=== PATIENT | female | born 1970 | race Caucasian/White ===

== ENCOUNTER 2016-11-13 07:15 | Outpatient (CLI) | payer OTHER | END 2016-11-13 07:16 | DX: R19.7 Diarrhea, unspecified (principal) ==

== ENCOUNTER 2020-10-17 12:26 | Outpatient (CLI) | payer OTHER | END 2020-10-17 12:27 | disposition home or self-care (01) | LOC: COV 12:26 | PROVIDERS: ATTEND Family Medicine | DX: R11.2 Nausea with vomiting, unspecified (principal); M79.10 Myalgia, unspecified site; Z20.822 Contact with and (suspected) exposure to COVID-19 ==

== ENCOUNTER 2021-01-14 20:32 | Outpatient (CLI) | payer OTHER | END 2021-01-14 20:33 | disposition critical access hospital (66) | LOC: EMS 20:32 | DX: T42.4X1A Poisoning by benzodiazepines, accidental (unintentional), initial encounter (principal) | CPT/HCPCS: A0425; A0429 ==

== ENCOUNTER 2021-01-14 20:47 | Emergency (ER) | payer OTHER ==
--- NOTE | 2021-01-14 21:05 | ED Physician Documentation ---
PD HPI OVERDOSE - Stated complaint Stated Complaint: ETOH,OD,SI - Chief complaint Chief Complaint: MHE - History obtained from History obtained from: Patient, Friend, EMS - History of Present Illness Timing - onset: How many hours ago (3-4), Today Subtance(s) ingested: Multiple (Flexeril and then Xanax.), EtOH Associated symptoms: Other (somnolent) Contributing factors: Other (The patient states that she had been feeling somewhat depressed and took the medication in order to sleep "for a while" and escape. She denies any suicidal intent. She was texting with a friend, messages read that she was taking an excess of meds to sleep, but "do not care" of consequence.). No: Suicidal Similar symptoms before: Diagnosis (she states she had overdose about 10 years ago. No recent problems with it. Has depression and bipolar and has regular counselor. States takes her meds regularly.) Recently seen: Not recently seen Review of Systems Constitutional: denies: Fever, Chills Nose: denies: Rhinorrhea / runny nose, Congestion Throat: denies: Sore throat Cardiac: denies: Chest pain / pressure Respiratory: denies: Cough GI: denies: Abdominal Pain, Vomiting, Diarrhea Skin: denies: Abrasion (s), Laceration (s) Neurologic: denies: Syncope, Headache, Head injury Psychiatric: reports: Depressed, Anxiety. 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 - Present Medications Home Medications: Ambulatory Orders Medication Instructions Recorded Confirmed Aspirin [Aspir 81] 81 mg PO DAILY 08/20/15 01/14/21 Dextroamphetamine/Amphetamine 30 mg PO BID 08/20/15 01/14/21 [Adderall 30 mg Tablet] Lurasidone HCl [Latuda] 60 mg PO DAILY 08/20/15 01/14/21 Metoprolol Tartrate 25 mg PO DAILY 08/20/15 01/14/21 Zolpidem [Ambien] 10 mg PO HS PRN 08/20/15 01/14/21 lamoTRIgine [Lamictal] 200 mg PO DAILY 08/20/15 01/14/21 - Allergies Allergies/Adverse Reactions: Allergies Allergy/AdvReac Type Severity Reaction Status Date / Time bupropion HCl * AdvReac Unknown Verified 01/14/21 21:09 [From Wellbutrin] - Social History Does the pt smoke?: No Smoking Status: Former smoker Does the pt drink ETOH?: No Does the pt have substance abuse?: No - Immunizations Immunizations are current?: Yes PD ED PE NORMAL - Vitals Vital signs reviewed: Yes - General General: Alert and oriented X 3, Well developed/nourished, Other (somnolent but able to carry conversation. Expressive of emotion, with yelling answers at times. ) - HEENT HEENT: Atraumatic, Pharynx benign - Neck Neck: Supple, no meningeal sign, No adenopathy - Cardiac Cardiac: No: RRR (mild tachycardia) - Respiratory Respiratory: No respiratory distress, Clear bilaterally - Abdomen Abdomen: Soft, Non tender, Non distended - Derm Derm: Normal color, Warm and dry - Extremities Extremities: No tenderness to palpate, Normal ROM s pain - Neuro Neuro: Alert and oriented X 3, No motor deficit, Normal speech Eye Opening: Spontaneous Motor: Obeys Commands Verbal: Oriented GCS Score: 15 Results - Vitals Vitals: Vital Signs - 24 hr 01/14/21 01/14/21 01/14/21 20:50 21:04 22:24 Temperature 36.7 C Heart Rate 101 H 105 H 100 Respiratory 16 21 21 Rate Blood Pressure 127/90 H 121/92 H 103/70 O2 Saturation 96 94 99 01/14/21 01/14/21 01/15/21 23:26 23:59 00:11 Temperature 36.5 C 36.8 C Heart Rate 90 100 90 Respiratory 16 18 16 Rate Blood Pressure 97/63 114/85 H 116/75 O2 Saturation 98 95 100 01/15/21 01/15/21 01/15/21 01:11 03:00 05:00 Temperature 36.3 C L Heart Rate 99 90 91 Respiratory 16 16 16 Rate Blood Pressure 118/68 118/65 115/85 H O2 Saturation 99 99 100 Oxygen O2 Source Room air - Labs Labs: Laboratory Tests 01/14/21 01/14/21 01/14/21 21:15 21:20 21:20 WBC 7.4 RBC 4.20 Hgb 13.8 Hct 40.6 MCV 96.7 MCH 32.9 H MCHC 34.0 RDW 12.9 Plt Count 298 MPV 10.1 Neut # (Auto) 3.8 Lymph # (Auto) 2.9 Rhea # (Auto) 0.5 Eos # (Auto) 0.1 Baso # (Auto) 0.0 Absolute Nucleated RBC 0.00 Nucleated RBC % 0.0 Sodium 141 Potassium 4.4 Chloride 106 Carbon Dioxide 23 Anion Gap 12.0 BUN 8 Creatinine 0.8 Estimated GFR (MDRD) 77 L Glucose 100 Calcium 9.2 Magnesium Total Bilirubin 0.6 AST 32 ALT 40 Alkaline Phosphatase 59 Total Protein 7.0 Albumin 4.0 Globulin 3.0 Albumin/Globulin Ratio 1.3 Lipase 40 Urine Color YELLOW Urine Clarity SL. CLOUDY Urine pH 6.0 Ur Specific [place] <=1.005 Urine Protein NEGATIVE Urine Glucose (UA) NEGATIVE Urine Ketones NEGATIVE Urine Occult Blood TRACE-INTA Urine Nitrite POSITIVE H Urine Bilirubin NEGATIVE Urine Urobilinogen 0.2 (NORMAL) Ur Leukocyte Esterase TRACE H Urine RBC 0-5 Urine WBC 0-3 Ur Squamous Epith Cells FEW Squamous Urine Bacteria Many H Ur Microscopic Review INDICATED Urine Culture Comments INDICATED Urine HCG, Qual NEGATIVE Salicylates < 6.0 Urine Opiates Screen NEGATIVE Ur Oxycodone Screen NEGATIVE Urine Methadone Screen NEGATIVE Ur Propoxyphene Screen NEGATIVE Acetaminophen < 10 L Ur Barbiturates Screen NEGATIVE Ur Tricyclics Screen NEGATIVE Ur Phencyclidine Scrn NEGATIVE Ur Amphetamine Screen POSITIVE H U Methamphetamines Scrn NEGATIVE U Benzodiazepines Scrn POSITIVE H Urine Cocaine Screen NEGATIVE U Cannabinoids Screen NEGATIVE Ethyl Alcohol 60.1 01/14/21 21:20 WBC RBC Hgb Hct MCV MCH MCHC RDW Plt Count MPV Neut # (Auto) Lymph # (Auto) Rhea # (Auto) Eos # (Auto) Baso # (Auto) Absolute Nucleated RBC Nucleated RBC % Sodium Potassium Chloride Carbon Dioxide Anion Gap BUN Creatinine Estimated GFR (MDRD) Glucose Calcium Magnesium 1.9 Total Bilirubin AST ALT Alkaline Phosphatase Total Protein Albumin Globulin Albumin/Globulin Ratio Lipase Urine Color Urine Clarity Urine pH Ur Specific [place] Urine Protein Urine Glucose (UA) Urine Ketones Urine Occult Blood Urine Nitrite Urine Bilirubin Urine Urobilinogen Ur Leukocyte Esterase Urine RBC Urine WBC Ur Squamous Epith Cells Urine Bacteria Ur Microscopic Review Urine Culture Comments Urine HCG, Qual Salicylates Urine Opiates Screen Ur Oxycodone Screen Urine Methadone Screen Ur Propoxyphene Screen Acetaminophen Ur Barbiturates Screen Ur Tricyclics Screen Ur Phencyclidine Scrn Ur Amphetamine Screen U Methamphetamines Scrn U Benzodiazepines Scrn Urine Cocaine Screen U Cannabinoids Screen Ethyl Alcohol PD MEDICAL DECISION MAKING - ED course Complexity details: reviewed results, re-evaluated patient (The patient did well with normal vitals and no conduction abnormalities on monitor. No altered mentation apparent. She did sleep good portion of the time. At this point we w ill wait for her to wake it more fully and reassess her mood and ability to contract for safety.), considered differential (Somnolent but still able to have conversation. She denies suicidal intent. However she does not state the reason for taking so many excess medicines. She does seem intoxicated at this point with certainly the Flexeril and benzodiazepines if not alcohol as well.), d/w patient, d/w health and wellness sales consultant (Poison control suggests a 6 to 8-hour period of observation due to the potential of TCA like side effects and anticholinergic effects of the Flexeril as well as the sedative effects of the Xanax and alcohol.) ED course: Patient initially was expressing desire to leave and be discharged. However I do not feel that is appropriate given some disinhibited nests with the emotion and the current intoxication (including medications as well as alcohol). I feel she needs the appropriate period of observation as suggested by poison control to ensure no significant side effects to the overdose. She will need reassessing at that point. It could also be good to have her to stay till the morning and talk with social work as well for second opinion. Point there was no indication for suicidality He has been in the department over 8 hours so is cleared medically without any obvious significant processes from the overdose other than sedation. Ideally would be nice to have social work talk with her regarding [place]ne for safety. There had not been a clear suicidality to it but it certain disregard for her own safety with the degree number of medications taken. Departure - Departure Clinical Impression: Mood disorder Intentional drug overdose Qualifiers: Encounter type: initial encounter Qualified Code(s): T50.902A - Poisoning by unspecified drugs, medicaments and biological substances, intentional self-harm, initial encounter Depression Qualifiers: Depression Type: unspecified Qualified Code(s): F32.9 - Major depressive disorder, single episode, unspecified Clinical Impression: (Ruled Out): Attempted suicide Condition: Stable Record reviewed to determine appropriate education?: Yes Instructions: ED Overdose Intentional, ED Depression
[2021-01-14] MEDS ORDERED: SODIUM CHLORIDE 0.9% 1,000 ML IV STA (21:25)
[2021-01-14 21:40] LABS: BILIRUBIN,URINE NEGATIVE (NEGATIVE); GLUCOSE, URINE (UA) NEGATIVE (NEGATIVE); KETONES,URINE (UA) NEGATIVE (NEGATIVE); LEUKOCYTE ESTERASE, URINE TRACE (NEGATIVE); NITRITE,URINE POSITIVE (NEGATIVE); OCCULT BLOOD,URINE TRACE-INTA (NEGATIVE); PROTEIN,URINE NEGATIVE (NEGATIVE); UROBILINOGEN,URINE 0.2 (NORMAL) E.U./dL (NORMAL)
[2021-01-14 21:41] LABS: CLARITY,URINE SL. CLOUDY (CLEAR); HCG UR QUAL NEGATIVE
[2021-01-14 21:42] LABS: BASOPHILS % (AUTO) 0.5 %; EOSINOPHILS # (AUTO) 0.1 10^3/uL (0.0-0.7); EOSINOPHILS % (AUTO) 1.4 %; HCT - HEMATOCRIT 40.6 % (37.0-47.0); HGB - HEMOGLOBIN 13.8 g/dL (12.0-16.0); LYMPHOCYTES # (AUTO) 2.9 10^3/uL (1.5-3.5); LYMPHOCYTES % (AUTO) 39.2 %; MEAN CORPUSCULAR HEMOGLOBIN 32.9 pg (27.0-31.0); MEAN CORPUSCULAR VOLUME 96.7 fL (81.0-99.0); MEAN PLATELET VOLUME 10.1 fL (7.9-10.8); MONOCYTES # (AUTO) 0.5 10^3/uL (0.0-1.0); MONOCYTES % (AUTO) 6.4 %; NEUTROPHILS # (AUTO) 3.8 10^3/uL (1.5-6.6); PLT - PLATELET COUNT 298 10^3/uL (130-450); RED CELL DISTRIBUTION WIDTH 12.9 % (12.0-15.0); WHITE BLOOD COUNT 7.4 x10^3/uL (4.8-10.8)
[2021-01-14 21:47] LABS: BACTERIA,URINE Many /HPF (None Seen); RBC,URINE 0-5 /HPF (0-5); SQUAMOUS EPITHELIAL CELL,UR FEW Squamous (<= Few); WBC,URINE 0-3 /HPF (0-5)
[2021-01-14 21:48] LABS: AMPHETAMINE SCREEN,URINE POSITIVE (NEGATIVE); BARBITURATE SCREEN,UR NEGATIVE (NEGATIVE); BENZODIAZEPINES SCREEN, URINE POSITIVE (NEGATIVE); COCAINE SCREEN URINE NEGATIVE (NEGATIVE); METHADONE SCREEN, URINE NEGATIVE (NEGATIVE); METHAMPHETAMINES SCREEN, URINE NEGATIVE (NEGATIVE); OPIATE SCREEN, URINE NEGATIVE (NEGATIVE); OXYCODONE SCREEN, URINE NEGATIVE (NEGATIVE); PROPOXYPHENE SCREEN, URINE NEGATIVE (NEGATIVE); THC CANNABINOID SCREEN, URINE NEGATIVE (NEGATIVE); TRICYCLIC ANTIDEPRESSANT,URINE NEGATIVE (NEGATIVE)
[2021-01-14 21:58] LABS: ACETAMINOPHEN < 10 ug/mL (10-30); ALBUMIN/GLOBULIN RATIO 1.3 (1.0-2.2); ALKALINE PHOSPHATASE 59 IU/L (42-121); ALT ALANINE AMINOTRANSFERASE 40 IU/L (10-60); AST ASPARTATE AMINOTRANSFERASE 32 IU/L (10-42); BILIRUBIN,TOTAL 0.6 mg/dL (0.2-1.0); BUN - BLOOD UREA NITROGEN 8 mg/dL (6-20); CALCIUM 9.2 mg/dL (8.5-10.3); CARBON DIOXIDE - CO2 23 mmol/L (21-32); CHLORIDE 106 mmol/L (101-111); CREATININE 0.8 mg/dL (0.4-1.0); ETOH - ETHANOL 60.1 mg/dL; GFR - MDRD 77 (>89); GLUCOSE 100 mg/dL (70-100); LIPASE 40 U/L (22-51); POTASSIUM 4.4 mmol/L (3.5-5.0); SALICYLATE < 6.0 mg/dL; SODIUM 141 mmol/L (135-145)
[2021-01-15] MEDS ORDERED: cefTRIAXone 1 GM VIAL IVP STA (01:09)
[2021-01-15] MEDS ORDERED: cephALEXin 250 MG CAPSULE PO STA (01:18)
[2021-01-15 09:31] VITALS: BP 115/72
== END 2021-01-15 09:30 | disposition home or self-care (01) ==
LOC: EDUNIT# → ED 20:47
DX: T42.4X2A Poisoning by benzodiazepines, intentional self-harm, initial encounter (principal); T48.1X2A Poisoning by skeletal muscle relaxants [neuromuscular blocking agents], intentional self-harm, initial encounter; F10.929 Alcohol use, unspecified with intoxication, unspecified; R40.0 Somnolence; F32.9 Major depressive disorder, single episode, unspecified; F39 Unspecified mood [affective] disorder; R00.0 Tachycardia, unspecified; Z87.891 Personal history of nicotine dependence; Z79.82 Long term (current) use of aspirin
CPT/HCPCS: 36415; 80053; 80306; 80307; 80320; 80329; 81001; 81025; 83690; 83735; 85025; 87077; 87086; 87181; 93005; 96360; 99283; 99284; A9270; 81003

== ENCOUNTER 2021-05-09 16:06 | Emergency (ER) | payer OTHER ==
[2021-05-09 16:19] VITALS: BP 126/75
== END 2021-05-09 16:49 | disposition left against medical advice (07) ==
LOC: ED 16:06
DX: Z53.21 Procedure and treatment not carried out due to patient leaving prior to being seen by health care provider (principal); I25.2 Old myocardial infarction
CPT/HCPCS: 93005

== ENCOUNTER 2023-03-03 18:59 | Outpatient (CLI) | payer OTHER | END 2023-03-03 19:00 | disposition critical access hospital (66) | LOC: EMS 18:59 | DX: R56.9 Unspecified convulsions (principal) | CPT/HCPCS: A0425; A0429 ==

== ENCOUNTER 2023-03-03 19:16 | Emergency (ER) | payer OTHER ==
--- NOTE | 2023-03-03 19:26 | ED Physician Documentation ---
PD HPI SEIZURE - Stated complaint Stated Complaint: SZ - Chief complaint Chief Complaint: Neuro - History obtained from History obtained from: Patient, EMS - History of Present Illness Timing - onset: Today Witnessed: Witnessed Number of seizures: Single Pain level max: 4 Pain level now: 0 History of seizures: Known seizure disorder Recently seen: Not recently seen - Additional information Additional information: Patient is a 52-year-old female with a known seizure disorder. She was at home today when she had a 1 minute generalized tonic-clonic seizure. Last seizure was August 2022. She has been trying to taper off her Lamictal recently as she has been having "memory issues". She complains of a generalized headache, there is an abrasion on the right forehead. Her daughter moved her from the bed down onto the floor. A towel was wrapped around her neck by EMS as a cervical collar. Patient complains of a mild headache. Review of Systems Constitutional: denies: Fever, Chills GI: denies: Vomiting, Diarrhea Skin: denies: Rash Musculoskeletal: denies: Back pain Neurologic: reports: Seizure. 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 - Present Medications Home Medications: Ambulatory Orders Medication Instructions Recorded Confirmed Dextroamphetamine/Amphetamine 60 mg PO DAILY 08/20/15 03/03/23 [Adderall 30 mg Tablet] Lurasidone HCl [Latuda] 60 mg PO DAILY 08/20/15 03/03/23 lamoTRIgine [Lamictal] 150 mg PO DAILY 08/20/15 03/03/23 Eszopiclone [Lunesta] 2 mg PO HS 03/03/23 03/03/23 OLANZapine ODT [Zyprexa Odt] 5 mg TL BID PRN 03/03/23 03/03/23 - Allergies Allergies/Adverse Reactions: Allergies Allergy/AdvReac Type Severity Reaction Status Date / Time bupropion HCl * AdvReac Unknown Verified 03/03/23 19:25 [From Wellbutrin] - Social History Does the pt smoke?: No Smoking Status: Former smoker Does the pt drink ETOH?: No Does the pt have substance abuse?: No - Immunizations Immunizations are current?: Yes - POLST Patient has POLST: No PD ED PE NORMAL - Vitals Vital signs reviewed: Yes - General General: Alert and oriented X 3, No acute distress, Well developed/nourished - HEENT HEENT: PERRL, Moist mucous membranes, Pharynx benign, Other (Abrasion to the right forehead) - Neck Neck: Supple, no meningeal sign, Other (Mild upper C-spine tenderness to palpation. No step-off or deformity) - Cardiac Cardiac: RRR, Strong equal pulses - Respiratory Respiratory: No respiratory distress, Clear bilaterally - Abdomen Abdomen: Soft, Non tender, Non distended - Derm Derm: Warm and dry - Extremities Extremities: No edema, No calf tenderness / cord - Neuro Neuro: Alert and oriented X 3, school counsellor 2-12 intact, No motor deficit, No sensory deficit, Normal speech - Psych Psych: Normal mood, Normal affect Results - Vitals Vitals: Vital Signs - 24 hr 03/03/23 03/03/23 03/03/23 19:25 19:36 20:14 Temperature 36.6 C Heart Rate 111 H 103 H 97 Respiratory 18 16 16 Rate Blood Pressure 138/98 H 143/94 H 128/86 H O2 Saturation 97 95 94 03/03/23 21:10 Temperature Heart Rate 113 H Respiratory 22 Rate Blood Pressure 141/97 H O2 Saturation 99 Oxygen O2 Source Room air - Labs Labs: Laboratory Tests 03/03/23 03/03/23 19:42 19:42 WBC 7.7 RBC 4.98 Hgb 14.7 Hct 48.5 H MCV 97.4 MCH 29.5 MCHC 30.3 L RDW 13.5 Plt Count TNP MPV 11.1 H Neut # (Auto) 4.9 Lymph # (Auto) 2.2 [place] # (Auto) 0.6 Eos # (Auto) 0.0 Baso # (Auto) 0.0 Absolute Nucleated RBC 0.00 Nucleated RBC % 0.0 Manual Slide Review Indicated Platelet Estimate NORMAL (130-450,000) Platelet Morphology PLATELET CLUMPING RBC Morph Micro Appear NORMAL APPEARANCE Sodium 141 Potassium 3.7 Chloride 107 Carbon Dioxide 21 Anion Gap 13.0 BUN 10 Creatinine 0.9 Estimated GFR (MDRD) 66 L Glucose 98 Calcium 9.1 Total Bilirubin 0.4 AST 49 H ALT 28 Alkaline Phosphatase 88 Total Protein 7.4 Albumin 3.9 Globulin 3.5 Albumin/Globulin Ratio 1.1 - Rads (name of study) head ct Relevant Findings:: Final report received, See rad report cervical ct Relevant Findings:: Final report received, See rad report PD Medical Decision Making - ED course Complexity details: reviewed results, re-evaluated patient, considered differential, d/w patient ED course: Headache resolved with Tylenol. No acute findings on head CT or cervical spine CT. Patient is back to her normal mental baseline. We will have her contact her neurologist in the morning to discuss if she should continue her Lamictal taper. No significant lab abnormalities. Patient is already not driving from her seizures. Patient will return if she worsens. Patient counseled regarding signs and symptoms for which I believe and urgent re-evaluation would be necessary. Patient with good understanding of and agreement to plan and is comfortable going home at this time This document was made in part using voice recognition software. While efforts are made to proofread this document, sound alike and grammatical errors may occur. Departure - Departure Disposition: 01 Home, Self Care Clinical Impression: Seizure Condition: Good Instructions: ED Seizure Recurrent Follow-Up: your,neurologist tomorrow [Other] Comments: Please contact your neurologist tomorrow to discuss your Lamictal taper. Please tell them that you had a seizure today. Your laboratory testing does not show any acute abnormalities. Your head CT and cervical spine CT are without acute abnormality as well. Please continue your medications and return if you worsen. Discharge Date/Time: 03/03/23 21:19
[2023-03-03 19:52] LABS: BASOPHILS % (AUTO) 0.3 %; HCT - HEMATOCRIT 48.5 % (37.0-47.0); HGB - HEMOGLOBIN 14.7 g/dL (12.0-16.0); LYMPHOCYTES # (AUTO) 2.2 10^3/uL (1.5-3.5); LYMPHOCYTES % (AUTO) 28.2 %; MEAN CORPUSCULAR HEMOGLOBIN 29.5 pg (27.0-31.0); MEAN CORPUSCULAR HGB CONC 30.3 g/dL (32.0-36.0); MEAN CORPUSCULAR VOLUME 97.4 fL (81.0-99.0); MEAN PLATELET VOLUME 11.1 fL (7.9-10.8); MONOCYTES # (AUTO) 0.6 10^3/uL (0.0-1.0); MONOCYTES % (AUTO) 7.2 %; NEUTROPHILS # (AUTO) 4.9 10^3/uL (1.5-6.6); NEUTROPHILS % (AUTO) 63.6 %; RED BLOOD COUNT 4.98 10^6/uL (4.20-5.40); RED CELL DISTRIBUTION WIDTH 13.5 % (12.0-15.0); WHITE BLOOD COUNT 7.7 x10^3/uL (4.8-10.8)
[2023-03-03 19:59] LABS: ALBUMIN 3.9 g/dL (3.2-5.5); ALBUMIN/GLOBULIN RATIO 1.1 (1.0-2.2); BILIRUBIN,TOTAL 0.4 mg/dL (0.2-1.0); CALCIUM 9.1 mg/dL (8.5-10.3); CREATININE 0.9 mg/dL (0.4-1.0); POTASSIUM 3.7 mmol/L (3.5-5.0); TOTAL PROTEIN 7.4 g/dL (6.7-8.2)
[2023-03-03 20:12] LABS: SLIDE REVIEW? Indicated
--- NOTE | 2023-03-03 20:16 | CT Report ---
PROCEDURE: HEAD WO INDICATIONS: seizure, head/neck pain TECHNIQUE: Noncontrast 4.5 mm thick angled axial sections acquired from the foramen magnum to the vertex. For r adiation dose reduction, the following was used: automated exposure control, adjustment of mA and/or kV according to patient size. COMPARISON: None. FINDINGS: Image quality: There is beam hardening and motion artifact. CSF spaces: There is mild cerebral volume loss with prominence of the ventricles and sulci. Basal ci sterns are patent. No extra-axial fluid collections. Brain: No definite intracranial hemorrhage, mass, or mass effect. Dailey-white matter interface is pre served. There are subcortical and periventricular white matter hypodensities consistent with mild chr onic small vessel ischemic changes. Skull and face: Calvarium and visualized facial bones are intact, without suspicious lesions. Sinuses: Visualized sinuses and mastoids are clear. IMPRESSION: 1. No definite acute intracranial abnormality. 2. Mild cerebral volume loss and chronic white matter small vessel ischemic changes. Reviewed by: Roosevelt Barajas MD on 03/03/2023 8:15 PM PDT Approved by: Roosevelt Barajas MD on 03/03/2023 8:15 PM PDT Station ID: [id number]
--- NOTE | 2023-03-03 20:18 | CT Report ---
PROCEDURE: CERVICAL SPINE WO INDICATIONS: seizure, head/neck pain TECHNIQUE: Noncontrast 3 mm thick sections acquired from the skull base to the T4 level. Sagittal and coronal r eformats were then constructed. For radiation dose reduction, the following was used: automated exp osure control, adjustment of mA and/or kV according to patient size. COMPARISON: None. FINDINGS: Image quality: Excellent. Bones: No fractures or subluxation. Visualized superior ribs are intact. Soft tissues: Prevertebral soft tissues are normal in thickness. No paravertebral hematomas. No ap ical pneumothoraces. IMPRESSION: 1. No fracture or subluxation. Reviewed by: Roosevelt Barajas MD on 03/03/2023 8:17 PM PDT Approved by: Roosevelt Barajas MD on 03/03/2023 8:17 PM PDT Station ID: [id number]
[2023-03-03 20:34] LABS: PLATELET ESTIMATE, MANUAL NORMAL (130-450,000) (NORMAL); PLATELET MORPHOLOGY PLATELET CLUMPING (NORMAL); RBC MORPHOLOGY (MULTIPLE) NORMAL APPEARANCE (NORMAL)
[2023-03-03] MEDS ORDERED: ACETAMINOPHEN 325 MG TABLET PO STA (20:52)
[2023-03-03 21:16] VITALS: BP 141/97
== END 2023-03-03 21:19 | disposition home or self-care (01) ==
LOC: EDUNIT# → ED 19:16
DX: G40.909 Epilepsy, unspecified, not intractable, without status epilepticus (principal); Z87.891 Personal history of nicotine dependence
CPT/HCPCS: 36415; 70450; 72125; 80053; 85025; 99283; 99284; A9270

== ENCOUNTER 2024-01-27 09:15 | Outpatient (CLI) | payer OTHER ==
[2024-01-27 13:41] LABS: BILIRUBIN,URINE NEGATIVE (NEGATIVE); GLUCOSE, URINE (UA) NEGATIVE (NEGATIVE); KETONES,URINE (UA) NEGATIVE (NEGATIVE); LEUKOCYTE ESTERASE, URINE TRACE (NEGATIVE); NITRITE,URINE POSITIVE (NEGATIVE); OCCULT BLOOD,URINE NEGATIVE (NEGATIVE); PROTEIN,URINE NEGATIVE (NEGATIVE); UROBILINOGEN,URINE 1 (NORMAL) E.U./dL (NORMAL)
[2024-01-27 13:44] LABS: CLARITY,URINE CLEAR (CLEAR)
[2024-01-27 14:08] LABS: BACTERIA,URINE Many /HPF (None Seen); RBC,URINE 0-5 /HPF (0-5); SQUAMOUS EPITHELIAL CELL,UR FEW Squamous (<= Few)
== END 2024-01-27 09:30 | disposition home or self-care (01) ==
LOC: LAB.N 09:15
PROVIDERS: ATTEND Physician Assistant Medical
DX: R35.0 Frequency of micturition (principal)
CPT/HCPCS: 81001; 87086